=== PATIENT | male | born 1990 | race Caucasian/White ===

== ENCOUNTER 2018-03-29 16:19 | Emergency (ER) | payer OTHER, MEDICAID ==
--- NOTE | 2018-03-29 16:26 | EDPHY ---
H & P Time Seen by Provider: 03/29/18 16:26 HPI/ROS: CHIEF COMPLAINT: Depression HISTORY OF PRESENT ILLNESS: The patient is a 28-year-old man who has a history of depression and previous hospitalizations who states that he has been feeling depressed and not taking his medications and then got in an argument with his parents today. Much of this history was receive by EMS. He was observed at the [employer] and someone thought he was intoxicated and called police. They then followed him in his car when he pulled over on the side of the road and slumped over on his steering well. He denies any drug or alcohol use recently. He states that he simply feels depressed but not suicidal or homicidal. He denies any recent illness or infection or trauma. He reports that he has been hospitalized for mental health problems in the past REVIEW OF SYSTEMS: Constitutional: denies: chills, fever, recent illness, recent injury EENTM: denies: blurred vision, double vision, nose congestion Respiratory: denies: cough, shortness of breath Cardiac: denies: chest pain, irregular heart rate, lightheadedness, palpitations Gastrointestinal/Abdominal: denies: abdominal pain, diarrhea, nausea, vomiting, blood streaked stools Genitourinary: denies: dysuria, frequency, hematuria, pain Musculoskeletal: denies: joint pain, muscle pain Skin: denies: lesions, rash, jaundice, bruising Neurological: denies: headache, numbness, paresthesia, tingling, dizziness, weakness Hematologic/Lymphatic: denies: blood clots, easy bleeding, easy bruising Immunologic/allergic: denies: HIV/AIDS, transplant EXAM: GENERAL: Well-appearing, well-nourished and in no acute distress. HEAD: Atraumatic, normocephalic. EYES: Pupils equal round and reactive to light, extraocular movements intact, sclera anicteric, conjunctiva are normal. ENT: TMs normal, nares patent, oropharynx clear without exudates. Moist mucous membranes. NECK: Normal range of motion, supple without lymphadenopathy or JVD. LUNGS: Breath sounds clear to auscultation bilaterally and equal. No wheezes rales or rhonchi. HEART: Regular rate and rhythm without murmurs, rubs or gallops. ABDOMEN: Soft, nontender, normoactive bowel sounds. No guarding, no rebound. No masses appreciated. BACK: No CVA tenderness, no spinal tenderness, step-offs or deformities EXTREMITIES: Normal range of motion, no pitting or edema. No clubbing or cyanosis. NEUROLOGICAL: Cranial nerves II through XII grossly intact. Normal speech, normal gait. 5/5 strength, normal movement in all extremities, normal sensation PSYCH: Decreased affect, will not make eye contact. SKIN: Warm, dry, normal turgor, no visible rashes or lesions. Source: Patient Exam Limitations: No limitations - Medical/Surgical History Hx Asthma: No Hx Chronic Respiratory Disease: No Hx Diabetes: No Hx Cardiac Disease: No Hx Renal Disease: No Hx Cirrhosis: No Hx Alcoholism: No Hx HIV/AIDS: No - Family History Significant Family History: No pertinent family hx - Social History Smoking Status: Never smoked Alcohol Use: Sober Drug Use: None Constitutional: Initial Vital Signs Temperature (C) 37.4 C 03/29/18 16:24 Heart Rate 87 03/29/18 16:24 Respiratory Rate 16 03/29/18 16:24 Blood Pressure 139/81 H 03/29/18 16:24 O2 Sat (%) 96 03/29/18 16:24 O2 Delivery Mode Room Air Allergies/Adverse Reactions: No Known Allergies Allergy (Unverified 03/29/18 16:30) Home Medications: Medication Instructions Recorded Cymbalta 03/29/18 Wellbutrin Sr 03/29/18 Medical Decision Making ED Course/Re-evaluation: The patient was not placed on a hold by police because he denies suicidality or homicidality. We will observe under security. At this point he continues to deny suicidality or intent for self-harm to me. I will have him evaluated by Mental Health. 5:45 p.m. patient medically cleared for psychiatric evaluation. I have placed him on a M1 hold. 9:05 p.m. the patient has been evaluated by Mental Health. They plan to discharge. He and his mom had been arguing about whether not to put down his dog. Today he was at the dog park playing with Trying to make a decision was very sad. His history of autism and occasionally states that his panic attacks and chest down and this is what happened while he was driving. He is now laughing and interactive. He has a safety plan. Differential Diagnosis: Partial list of the Differential diagnosis considered include but were not limited to; depression, anxiety, autism and although unlikely based on the history and physical exam, I also considered suicidality, homicidality, infection, head injury. I discussed these differential diagnoses and the plan with the patient as well as the usual and expected course. The patient understands that the diagnosis is provisional and that in medicine we are not always correct and that further workup is often warranted. Usual and customary warnings were given. All of the patient's questions were answered. The patient was instructed to return to the emergency department should the symptoms at all worsen or return, otherwise to followup with the physician as we discussed. - Data Points Laboratory Results: Laboratory Results 03/29/18 17:00 03/29/18 17:00 03/29/18 03/29/18 03/29/18 17:00 17:00 17:00 WBC 9.68 10^3/uL H 10^3/uL (3.80-9.50) RBC 4.83 10^6/uL 10^6/uL (4.40-6.38) Hgb 14.2 g/dL g/dL (13.7-17.5) Hct 42.9 % % (40.0-51.0) MCV 88.8 fL fL (81.5-99.8) MCH 29.4 pg pg (27.9-34.1) MCHC 33.1 g/dL g/dL (32.4-36.7) RDW 13.0 % % (11.5-15.2) Plt Count 277 10^3/uL 10^3/uL (150-400) MPV 9.6 fL fL (8.7-11.7) Neut % (Auto) 48.7 % % (39.3-74.2) Lymph % (Auto) 38.7 % % (15.0-45.0) [place] % (Auto) 9.9 % % (4.5-13.0) Eos % (Auto) 1.9 % % (0.6-7.6) Baso % (Auto) 0.6 % % (0.3-1.7) Nucleat RBC Rel Count 0.0 % % (0.0-0.2) Absolute Neuts (auto) 4.71 10^3/uL 10^3/uL (1.70-6.50) Absolute Lymphs (auto) 3.75 10^3/uL H 10^3/uL (1.00-3.00) Absolute Monos (auto) 0.96 10^3/uL H 10^3/uL (0.30-0.80) Absolute Eos (auto) 0.18 10^3/uL 10^3/uL (0.03-0.40) Absolute Basos (auto) 0.06 10^3/uL 10^3/uL (0.02-0.10) Absolute Nucleated RBC 0.00 10^3/uL 10^3/uL (0-0.01) Immature Gran % 0.2 % % (0.0-1.1) Immature Gran # 0.02 10^3/uL 10^3/uL (0.00-0.10) Sodium 144 mEq/L mEq/L (135-145) Potassium 4.3 mEq/L mEq/L (3.3-5.0) Chloride 105 mEq/L mEq/L (97-110) Carbon Dioxide 25 mEq/l mEq/l (22-31) Anion Gap 14 mEq/L mEq/L (8-16) BUN 15 mg/dL mg/dL (7-23) Creatinine 0.8 mg/dL mg/dL (0.7-1.3) Estimated GFR > 60 Glucose 96 mg/dL mg/dL (70-100) Calcium 9.9 mg/dL mg/dL (8.5-10.4) Urine Opiates Screen NEGATIVE (NEGATIVE) Urine Barbiturates NEGATIVE (NEGATIVE) Ur Phencyclidine Scrn NEGATIVE (NEGATIVE) Ur Amphetamine Screen NEGATIVE (NEGATIVE) U Benzodiazepines Scrn NEGATIVE (NEGATIVE) Urine Cocaine Screen NEGATIVE (NEGATIVE) U Marijuana (THC) Screen NEGATIVE (NEGATIVE) Ethyl Alcohol < 10 mg/dL mg/dL (0-10) Departure - Departure Disposition: Home, Routine, Self-Care Clinical Impression: Severe major depression, Autism Condition: Fair Instructions: Depression (ED), Autism Spectrum Disorder (ED) Referrals: Patient,NotPresent [Unknown] - As per Instructions
[2018-03-29 17:12] LABS: PLATELET COUNT 277 10^3/uL (150-400)
[2018-03-29 21:30] VITALS: BP 135/81
== END 2018-03-29 21:31 | disposition home or self-care (01) ==
LOC: EDUNIT# → EEVIPCON 16:19
DX: F32.2 Major depressive disorder, single episode, severe without psychotic features (principal); F84.0 Autistic disorder
CPT/HCPCS: 80305; G0480